=== PATIENT | male | born 1985 | race Caucasian/White ===

== ENCOUNTER 2018-06-14 23:09 | Emergency (ER) | payer MEDICAID ==
[~2018-06-14] VITALS: Ht 170.2 cm; Wt 78.3 kg
[2018-06-14 23:31] VITALS: Ht 170.2 cm; Wt 78.3 kg
[2018-06-15] MEDS ORDERED: LIDOCAINE 1% (MDV) 20 ML INJ SC ONE (00:30)
[2018-06-15] MEDS ORDERED: IBUP-1542 PO (01:12)
[2018-06-15 01:24] VITALS: BP 109/64; PULSE 64; RESP 18
--- NOTE | 2018-06-15 01:56 | ERD ---
ER Documentation Chief Complaint Chief Complaint abscess to left ear lobe HPI 32-year-old male complaining of abscess to the left earlobe times 1 week. Patient states that the area is getting bigger and more painful every day. He had a similar abscess to his right earlobe about 1 year ago. He had a drain at that time. Patient states that the pain radiates into his right ear and right jaw. Denies fever or chills. Denies decreased hearing. Denies ear drainage. Denies pain when chewing food. ROS All systems reviewed and are negative except as per history of present illness. Medications Home Meds Active Scripts Ibuprofen* (Motrin*) 600 Mg Tab, 600 MG PO Q6H PRN for PAIN AND OR ELEVATED TEMP, #30 TAB Prov:FRANKIE ADAMSON SCHOOL CLERK 06/15/18 Allergies Allergies: Coded Allergies: No Known Drug Allergy (Verified Allergy, Unknown, 06/14/18) PMhx/Soc Medical and Surgical Hx: pt denies Medical Hx, pt denies Surgical Hx Hx Alcohol Use: No Hx Substance Use: No Hx Tobacco Use: No Smoking Status: Never smoker Physical Exam Vitals Vital Signs Date Temp Pulse Resp B/P (MAP) Pulse Ox O2 O2 Flow FiO2 Time Delivery Rate 06/15/18 97.8 64 18 109/64 99 Room Air 01:24 (79) 06/14/18 97.6 100 18 123/71 96 23:31 (88) Physical Exam General: Well-developed, well-nourished, conscious and coherent, in no distress Skin: Warm and dry without rash, good texture and turgor Head: Normocephalic without evidence of trauma Ears: Canals are patent. Tympanic membranes are clear. Left earlobe was swollen and fluctuant. Chest: Normal AP diameter. Good expansion without retractions. Nontender. Lungs are clear to auscultate bilaterally with good tidal volume Heart: Regular rate and rhythm. No murmur, rub, or gallops heard Extremities: Full range of motion. Good strength bilaterally. No erythema, ecchymosis, or edema. Peripheral pulses are intact. Sensation intact Neuro: Alert and oriented 4, GCS 15. Results 24 hrs Current Medications Medications Dose Sig/Andrzej Start Time Status Last (Trade) Ordered Route PRN Stop Time Admin Dose Reason Admin Lidocaine 5 ml ONCE ONCE 06/15/18 DC (Xylocaine SC 00:30 06/15/18 1% (Mdv) 20 00:31 ml) Procedures/MDM Procedure note: Incision and Drainage Verbal consent obtained for incision and drainage of patient's abscess. The area was prepped with Betadine. Lidocaine 1% was infiltrated for local anesthesia. After appropriate anesthesia, incision was made using #11 blade. Small amount of purulent discharge and Estefani was drained from the abscess. Manual compression applied. The abscess was probed for loculation. I also remove the sebaceous sac. The wound was then cleaned and dressed. While lying on the gurney for the procedure, patient appeared to had a vasovagal syncope. I was able to arouse him after the procedure, patient had normal vital signs after being aroused. I doubt seizure, stroke, hypoxemia. Patient appears well, stable for discharge and outpatient management. Medical decision making shared with patient and family. Education provided to patient and family. Patient and family expressed understanding of the plan. Medications on discharge: Ibuprofen. Follow-up: Primary care provider or ED in 2 days for recheck. Disclaimer: Inadvertent spelling and grammatical errors are likely due to EHR/dictation software use and do not reflect on the overall quality of patient care. Also, please note that the electronic time recorded on this note does not necessarily reflect the actual time of the patient encounter. Departure Diagnosis: Primary Impression: Sebaceous cyst of ear Condition: Stable Patient Instructions: Sebaceous Cyst, Infected (I And D) Referrals: [facility] YOU HAVE RECEIVED A MEDICAL SCREENING EXAM AND THE RESULTS INDICATE THAT YOU DO NOT HAVE A CONDITION THAT REQUIRES URGENT TREATMENT IN THE EMERGENCY DEPARTMENT. FURTHER EVALUATION AND TREATMENT OF YOUR CONDITION CAN WAIT UNTIL YOU ARE SEEN IN YOUR DOCTORS OFFICE WITHIN THE NEXT 1-2 DAYS. IT IS YOUR RESPONSIBILITY TO MAKE AN APPOINTMENT FOR FOLOW-UP CARE. IF YOU HAVE A PRIMARY DOCTOR --you should call your primary doctor and schedule an appointment IF YOU DO NOT HAVE A PRIMARY DOCTOR YOU CAN CALL OUR PHYSICIAN REFERRAL HOTLINE AT IF YOU CAN NOT AFFORD TO SEE A PHYSICIAN YOU CAN CHOSE FROM THE FOLLOWING [facility] [address] [facility] [address] [facility]. [facility] [address]. [facility] [address] [facility]. [facility] [address] [facility] [address]. [facility] [address] Additional Instructions: Return to this facility in 2 DAYS for a follow-up exam.Return sooner if your condition worsens. FRANKIE ADAMSON. NANCY Jun 15, 2018 01:56
== END 2018-06-15 01:42 | disposition home or self-care (01) ==
LOC: E/R 23:09 → FTE 06-15 01:42
DX: L72.3 Sebaceous cyst (principal); R40.2412 Glasgow coma scale score 13-15, at arrival to emergency department
CPT/HCPCS: 69000; Z7502; Z7610

== ENCOUNTER 2018-09-27 22:37 | Observation (INO) | payer SELFPAY ==
[~2018-09-27] VITALS: Ht 170.2 cm; Wt 74.4 kg
[~2018-09-27 22:37] MED LIST: IBUP-1542 PO
[2018-09-27 22:46] VITALS: Ht 170.2 cm; Wt 74.4 kg
[2018-09-27] MEDS ORDERED: SOD CHLORIDE 0.9% 1,000 ML IV ONE (23:30)
[2018-09-28] MEDS ORDERED: ACETAMINOPHEN 325 MG TAB PO ONE (03:30)
--- NOTE | 2018-09-28 04:30 | ERD ---
ER Documentation Chief Complaint Chief Complaint dizzy, numb toes, shivers, sweating x1mo. amb w steady gait. HPI 33-year-old male comes in because it chest pain dizziness and diaphoresis for 1 month. Denies nausea or vomiting. He says it got worse today. History of pericarditis. Feels different than his previous episodes of pericarditis. Denies any other current issues. ROS All systems reviewed and are negative except as per history of present illness. Medications Home Meds Active Scripts Ibuprofen* (Motrin*) 600 Mg Tab, 600 MG PO Q6H PRN for PAIN AND OR ELEVATED TE MP, #30 TAB Prov:FRANKIE ADAMSON. COMMODITIES REQUIREMENTS ANALYST 06/15/18 Allergies Allergies: Coded Allergies: No Known Drug Allergy (Verified Allergy, Unknown, 06/14/18) PMhx/Soc History of Surgery: Yes (TONSILECTOMY ) Hx Cardiac Disorders: Yes (PERICARDITIS ) Hx Alcohol Use: No Hx Substance Use: No Hx Tobacco Use: No Smoking Status: Never smoker Physical Exam Vitals Vital Signs Date Temp Pulse Resp B/P (MAP) Pulse Ox O2 O2 Flow FiO2 Time Delivery Rate 09/28/18 76 16 107/66 97 Room Air 03:08 (80) 09/28/18 97.6 80 16 129/94 100 Room Air 00:57 (106) 09/27/18 97.6 83 18 145/83 96 22:46 (103) Physical Exam Const: No acute distress Head: Atraumatic Eyes: Normal Conjunctiva ENT: Normal External Ears, Nose and Mouth. Neck: Full range of motion. No meningismus. Resp: Clear to auscultation bilaterally Cardio: Regular rate and rhythm, no murmurs Abd: Soft, non tender, non distended. Normal bowel sounds Skin: No petechiae or rashes Back: No midline or flank tenderness Ext: No cyanosis, or edema Neur: Awake and alert Psych: Normal Mood and Affect Result Diagram: 09/27/18232909/27/182329 Results 24 hrs Laboratory Tests Test 09/27/18 23:30 White Blood Count 10.7 10^3/ul Red Blood Count 5.94 10^6/ul Hemoglobin 16.1 g/dl Hematocrit 47.8 % Mean Corpuscular Volume 80.5 fl Mean Corpuscular Hemoglobin 27.1 pg Mean Corpuscular Hemoglobin Concent 33.7 g/dl Red Cell Distribution Width 11.9 % Platelet Count 320 10^3/UL Mean Platelet Volume 9.6 fl Immature Granulocytes % 0.500 % Neutrophils % 62.9 % Lymphocytes % 28.0 % Monocytes % 6.9 % Eosinophils % 1.0 % Basophils % 0.7 % Nucleated Red Blood Cells % 0.0 /100WBC Immature Granulocytes # 0.050 10^3/ul Neutrophils # 6.8 10^3/ul Lymphocytes # 3.0 10^3/ul Monocytes # 0.7 10^3/ul Eosinophils # 0.1 10^3/ul Basophils # 0.1 10^3/ul Nucleated Red Blood Cells # 0.0 10^3/ul Sodium Level 144 mmol/L Potassium Level 4.2 mmol/L Chloride Level 102 mmol/L Carbon Dioxide Level 30 mmol/L Anion Gap 12 Blood Urea Nitrogen 17 mg/dl Creatinine 0.88 mg/dl Est Glomerular Filtrat Rate mL/min > 60 mL/min Glucose Level 84 mg/dl Calcium Level 9.9 mg/dl Total Bilirubin 0.7 mg/dl Direct Bilirubin 0.00 mg/dl Indirect Bilirubin 0.7 mg/dl Aspartate Amino Transf (AST/SGOT) 32 IU/L Alanine Aminotransferase (ALT/SGPT) 52 IU/L Alkaline Phosphatase 104 IU/L Troponin I < 0.012 ng/ml B-Type Natriuretic Peptide 20 PG/ML Total Protein 8.6 g/dl Albumin 5.1 g/dl Globulin 3.50 g/dl Albumin/Globulin Ratio 1.45 Thyroid Stimulating Hormone (TSH) 3.790 MIU/L Free Thyroxine Index 3.14 ug/ml Thyroxine (T4) 9.6 ug/dl Triiodothyronine (T3) Uptake 32.7 % Current Medications Medications Dose Sig/Andrzej Start Time Status Last (Trade) Ordered Route PRN Stop Time Admin Dose Reason Admin Sodium 1,000 ml @ Q1H ONCE 09/27/18 DC 09/27/18 Chloride 1,000 mls/hr IV 23:30 23:37 09/28/18 00:29 650 mg ONCE ONCE 09/28/18 DC 09/28/18 Acetaminophen PO 03:30 03:19 (Tylenol 09/28/18 03:31 Tab) Procedures/MDM EKG: Rate/Rhythm: [Normal Sinus Rhythm] QRS, ST, T-waves: [No changes consistent w/ acute ischemia] Impression: [No evidence of ischemia or arrhythmia] Chest X-ray 1V Interpreted by me: Soft Tissue: No acute abnormalities Bones: No acute abnormalities Mediastinum/Cardiac Silhouette/Lungs: [No acute abnormalities] Patient's symptoms are concerning for cardiac cause will require inpatient workup and continuous monitoring. Further w/u for ischemia, arrhythmia, PE or dissection will be deferred to the inpatient team. Accepting Care Team: Current data and ongoing care discussed. Time: 1 AM Primary Provider: Hospitalist Consulting: Deferred to inpatient team Outstanding Data: none Departure Diagnosis: Primary Impression: Chest pain Chest pain type: unspecified Qualified Codes: R07.9 - Chest pain, unspecified Condition: Serious SANTOS DEL RIO Sep 28, 2018 04:30
[2018-09-28] MEDS ORDERED: ONDANSETRON 4 MG INJ IV PRN (05:30)
[2018-09-28] MEDS ORDERED: NITROGLYCERIN (SL) 0.4 MG TAB SL PRN (05:30)
[2018-09-28] MEDS ORDERED: NACL 0.9% 3 ML SYG IV SCH (05:30)
[2018-09-28] MEDS ORDERED: ACETAMINOPHEN 325 MG TAB PO PRN (05:30)
--- NOTE | 2018-09-28 08:09 | HP ---
Date/Time of Note Date/Time of Note DATE: 09/28/18 TIME: 08:05 Assessment/Plan VTE Prophylaxis Pharmacological prophylaxis: heparin Lines/Catheters IV Catheter Type (from Nrs): Saline Lock Assessment/Plan Assessment/Plan 33-year-old male with a history of pericarditis diagnosed at the age of 19 here with facial numbness, bilateral lower extremity numbness as well as left upper extremity weakness. PLAN -Patient reported that he had a stroke work-up including MRI of the brain at [facility] a month ago onset of his symptoms. He stated work-up was negative. -Here head CT is negative for acute findings -Plan is to obtain records from [facility] and obtain a Neurology consult. We will however order a 2D echo since he said he did have one at [place] Result Diagram: 09/28/18 0538 09/28/18 0538 Results 24hrs Laboratory Tests Test 09/27/18 23:30 09/28/18 05:38 White Blood Count 10.7 8.2 # Red Blood Count 5.94 5.33 Hemoglobin 16.1 14.4 Hematocrit 47.8 43.0 Mean Corpuscular Volume 80.5 L 80.7 L Mean Corpuscular Hemoglobin 27.1 L 27.0 L Mean Corpuscular Hemoglobin Concent 33.7 33.5 Red Cell Distribution Width 11.9 12.3 Platelet Count 320 273 Mean Platelet Volume 9.6 9.5 Immature Granulocytes % 0.500 H 0.200 Neutrophils % 62.9 49.5 Lymphocytes % 28.0 36.9 Monocytes % 6.9 10.4 Eosinophils % 1.0 2.0 Basophils % 0.7 1.0 Nucleated Red Blood Cells % 0.0 0.0 Immature Granulocytes # 0.050 H 0.020 Neutrophils # 6.8 4.1 Lymphocytes # 3.0 H 3.0 H Monocytes # 0.7 0.9 Eosinophils # 0.1 0.2 Basophils # 0.1 0.1 Nucleated Red Blood Cells # 0.0 0.0 Sodium Level 144 144 Potassium Level 4.2 3.9 Chloride Level 102 104 Carbon Dioxide Level 30 33 H Anion Gap 12 7 Blood Urea Nitrogen 17 13 Creatinine 0.88 0.82 Est Glomerular Filtrat Rate mL/min > 60 > 60 Glucose Level 84 81 Calcium Level 9.9 9.2 Total Bilirubin 0.7 0.9 Direct Bilirubin 0.00 0.00 Indirect Bilirubin 0.7 0.9 Aspartate Amino Transf (AST/SGOT) 32 21 Alanine Aminotransferase (ALT/SGPT) 52 40 Alkaline Phosphatase 104 74 Troponin I < 0.012 < 0.012 B-Type Natriuretic Peptide 20 Total Protein 8.6 H 6.7 # Albumin 5.1 H 4.1 # Globulin 3.50 H 2.60 Albumin/Globulin Ratio 1.45 1.57 Thyroid Stimulating Hormone (TSH) 3.790 2.730 Free Thyroxine Index 3.14 Thyroxine (T4) 9.6 Triiodothyronine (T3) Uptake 32.7 Hemoglobin A1c 5.0 Magnesium Level 2.2 Creatine Kinase 63 Creatine Kinase Index 0.5 Creatinine Kinase MB (Mass) 0.32 Triglycerides Level 146 Cholesterol Level 165 LDL Cholesterol, Calculated 96 HDL Cholesterol 40 Cholesterol/HDL Ratio 4.1 Vitamin B12 Level 382 Folate 6.2 HPI/ROS Admit Date/Time Admit Date/Time Hx of Present Illness This is a 33-year-old male with a history of pericarditis diagnosed at the age of 19 presents to the ER complaining of facial numbness as well as bilateral lower extremity numbness. On further questioning he also reported left upper extremity weakness. He said symptoms started a month ago. At that time, he went to [facility] where he said he had a stroke work-up. He was told MRI of the brain was normal. His symptoms continued and as such he came here for evaluation. He also reported that he has been feeling cold and hot. Denied slurred speech, facial droop, seizure-like activity, visual disturbance, headache, chest pain or shortness of breath. When he presented to ER, vitals were stable. CT of the head without acute findings. PMH/Family/Social Past Medical History Medical History: other (See HPI) Medications Current Medications IV Flush (NS 3 ml) 3 ml PER PROTOCOL IV ; Start 09/28/18 at 05:30 Ondansetron HCl (Zofran Inj) 4 mg Q6H PRN IV NAUSEA/VOMITING; Start 09/28/18 at 05:30 Aspirin (Aspirin) 81 mg DAILY PO ; Start 09/28/18 at 09:00 Nitroglycerin (Nitroglycerin (Sl Tab) 0.4 Mg) 1 tab Q5M PRN SL .CHEST PAIN; Start 09/28/18 at 05:30 Acetaminophen (Tylenol Tab) 650 mg Q6H PRN PO .PAIN 1-3 OR TEMP; Start 09/28/18 at 05:30 Enoxaparin Sodium (Lovenox) 40 mg DAILY SC ; Start 09/28/18 at 09:00 Coded Allergies: No Known Drug Allergy (Verified Allergy, Unknown, 09/28/18) Past Surgical History Past Surgical Hx: other (See HPI) Family History Significant Family History: no pertinent family hx Social History Alcohol Use: other Smoking Status: Never smoker Drug Use: none Exam/Review of Systems Vital Signs Vitals Vital Signs Date Temp Pulse Resp B/P (MAP) Pulse Ox O2 O2 Flow FiO2 Time Delivery Rate 09/28/18 59 16 109/79 100 Room Air 07:30 (89) 09/28/18 97.6 00:57 Exam Constitutional: alert, oriented, well developed Head: normocephalic, atraumatic Eyes: EOMI, PERRL Respiratory: clear to auscultation, normal air movement Cardiovascular: regular rate and rhythm, nl pulses Gastrointestinal: soft, non-tender Extremities: normal pulses Neurological: nl mental status, nl speech, other (Slightly decreased handgrip of the left hand.) SANTOS CARMONA MD Sep 28, 2018 08:09
[2018-09-28] MEDS: ENOXAPARIN 40 MG/0.4 ML SYG SC SCH ×2 (09:00→10:06)
[2018-09-28] MEDS: ASPIRIN 81 MG TAB PO SCH (10:06)
--- NOTE | 2018-09-28 14:17 | QN ---
Documentation Comment 33-year-old male with a history of pericarditis at age 19, migraine headaches, admitted with bilateral facial/upper and lower extremity numbnessx 1 month duration. Apparently, patient had comprehensive neurological work-up at outside hospital which was nondiagnostic. Patient continued to have a headache and he believes his symptoms are also related to his migraine headaches and anxiety. At this time, we recommend giving him 1 dose of Imitrex, obtain a carotid ultrasound, brain MRI and official neurology evaluation. We will also obtain a TTE.. We will also order a vitamin D level to a.m. labs. Discussed with YULI Pickens NP Sep 28, 2018 14:17
[2018-09-28] MEDS ORDERED: SUMATRIPTAN 6 MG/0.5 ML INJ SC ONE (14:30)
--- NOTE | 2018-09-28 15:13 | CONS ---
Assessment/Plan Assessment/Plan Hospital Course 33 yo M with distant hx of pericarditis who presents for evaluation of episodic face and BL leg numbness x 1 month... for which neurology is consulted. The clinical picture, as presented, is nonphysiologic. Somatization is a diagnosis of exclusion. A focal [employer]CHO[employer] MUSIC TEACHER process is unlikely. MRI brain is unrevealing. Neuroimaging from [facility] (MRI brain, CT/CTA H/N) was unremarkable. P: Defer further neurologic workup for now Cont other medical management per primary PT/OT/ST as necessary Will follow Consultation Date/Type/Reason Admit Date/Time Type of Consult Neurology Reason for Consultation face/arm/BL E numbness Requesting Provider: YULI TORRES NP Date/Time of Note DATE: 09/28/18 TIME: 15:13 Hx of Present Illness 33 yo M with hx of pericarditis who presented to the ED for evaluation of face and BLE numbness x 1 month. The pt states that ~ 1 month ago, he woke up in the middle of the night with L arm/shoulder numbness. He stated that he tried to drink water and then started shaking, like it was a seizure, which is what ultimately brought him to [facility]'s ED. He stated that the workup from [facility] was reportedly negative but his sx still persisted. He states that following the ED visit, he started developing whole face and BL feet numbness that occurred around the same time every night, came on gradually and then went away on its own. He stated that because his sx persisted, he brought himself again to the ED. He currently endorses headache and BL feet numbness. Denies all other focal sx currently. He denies alcohol or illicit drug use. He endorses stress in his life but did not discuss it further. It is additionally elsewhere noted: Hx of Present Illness This is a 33-year-old male with a history of pericarditis diagnosed at the age of 19 presents to the ER complaining of facial numbness as well as bilateral lower extremity numbness. On further questioning he also reported left upper extremity weakness. He said symptoms started a month ago. At that time, he went to [facility] where he said he had a stroke work-up. He was told MRI of the brain was normal. His symptoms continued and as such he came here for evaluation. He also reported that he has been feeling cold and hot. Denied slurred speech, facial droop, seizure-like activity, visual disturbance, headache, chest pain or shortness of breath. When he presented to ER, vitals were stable. CT of the head without acute findings. negative unless noted otherwise in HPI Exam/Review of Systems Exam Vitals Vital Signs Date Temp Pulse Resp B/P (MAP) Pulse Ox O2 O2 Flow FiO2 Time Delivery Rate 09/28/18 74 16 123/83 100 Room Air 13:00 (96) 74 09/28/18 97.6 00:57 Exam PE: Gen Appearance: No Apparent Distress HEENT: Normocephalic Cardiovascular: Regular rate Lungs: Clear bilaterally Abdomen: Soft Extremities: Dry NE: The patient was alert and oriented. Language was normal. Fund of knowledge was normal. Pupils were equal and reactive to light. There was no afferent pupillary defect. Visual mccabe were normal. Funduscopic examination was limited. Extra-ocular movements were full. Ptosis was absent. There was no nystagmus. Facial sensation was normal. Face was symmetric with normal strength. Hearing was intact. Palate movements were normal. Neck strength was normal. There was normal tongue bulk and speed of movement. Tone was normal. Muscle bulk was normal. I did not see fasciculations. Arms and legs were strong. Sensation to light touch was diminished in his L foot. Vibration sensation was normal. Temperature and pinprick sensation was normal. Rapid alternating movements were normal. There was no dysmetria. There was no intention tremor. Gait was deferred due to bedrest. Arm and leg reflexes were 2+ and symmetric. Du's sign was absent. Plantar responses were flexor. Results Result Diagram: 09/28/18 0538 09/28/18 0538 Results 24hrs Laboratory Tests Test 09/27/18 23:30 09/28/18 05:33 09/28/18 05:38 09/28/18 10:59 White Blood Count 10.7 8.2 # Red Blood Count 5.94 5.33 Hemoglobin 16.1 14.4 Hematocrit 47.8 43.0 Mean Corpuscular 80.5 L 80.7 L Volume Mean Corpuscular 27.1 L 27.0 L Hemoglobin Mean Corpuscular 33.7 33.5 Hemoglobin Concent Red Cell 11.9 12.3 Distribution Width Platelet Count 320 273 Mean Platelet Volume 9.6 9.5 Immature 0.500 H 0.200 Granulocytes % Neutrophils % 62.9 49.5 Lymphocytes % 28.0 36.9 Monocytes % 6.9 10.4 Eosinophils % 1.0 2.0 Basophils % 0.7 1.0 Nucleated Red Blood 0.0 0.0 Cells % Immature 0.050 H 0.020 Granulocytes # Neutrophils # 6.8 4.1 Lymphocytes # 3.0 H 3.0 H Monocytes # 0.7 0.9 Eosinophils # 0.1 0.2 Basophils # 0.1 0.1 Nucleated Red Blood 0.0 0.0 Cells # Sodium Level 144 144 Potassium Level 4.2 3.9 Chloride Level 102 104 Carbon Dioxide Level 30 33 H Anion Gap 12 7 Blood Urea Nitrogen 17 13 Creatinine 0.88 0.82 Est Glomerular > 60 > 60 Filtrat Rate mL/min Glucose Level 84 81 Calcium Level 9.9 9.2 Total Bilirubin 0.7 0.9 Direct Bilirubin 0.00 0.00 Indirect Bilirubin 0.7 0.9 Aspartate Amino 32 21 Transf (AST/SGOT) Alanine 52 40 Aminotransferase (AL T/SGPT) Alkaline Phosphatase 104 74 Troponin I < 0.012 < 0.012 < 0.012 B-Type Natriuretic 20 Peptide Total Protein 8.6 H 6.7 # Albumin 5.1 H 4.1 # Globulin 3.50 H 2.60 Albumin/Globulin 1.45 1.57 Ratio Thyroid Stimulating 3.790 2.730 Hormone (TSH) Free Thyroxine Index 3.14 Thyroxine (T4) 9.6 Triiodothyronine 32.7 (T3) Uptake Vitamin D 34.7 1,25-Dihydroxy Hemoglobin A1c 5.0 Magnesium Level 2.2 Creatine Kinase 63 68 Creatine Kinase 0.5 0.3 Index Creatinine Kinase MB 0.32 0.23 (Mass) Triglycerides Level 146 Cholesterol Level 165 LDL Cholesterol, 96 Calculated HDL Cholesterol 40 Cholesterol/HDL 4.1 Ratio Vitamin B12 Level 382 Folate 6.2 Medications Medication Current Medications IV Flush (NS 3 ml) 3 ml PER PROTOCOL IV ; Start 09/28/18 at 05:30 Ondansetron HCl (Zofran Inj) 4 mg Q6H PRN IV NAUSEA/VOMITING; Start 09/28/18 at 05:30 Aspirin (Aspirin) 81 mg DAILY PO Last administered on 09/28/18at 10:06; Admin Dose 81 MG; Start 09/28/18 at 09:00 Nitroglycerin (Nitroglycerin (Sl Tab) 0.4 Mg) 1 tab Q5M PRN SL .CHEST PAIN; Start 09/28/18 at 05:30 Acetaminophen (Tylenol Tab) 650 mg Q6H PRN PO .PAIN 1-3 OR TEMP; Start 09/28/18 at 05:30 Enoxaparin Sodium (Lovenox) 40 mg DAILY SC ; Start 09/28/18 at 09:00 Atorvastatin Calcium (Lipitor) 20 mg QHS PO ; Start 09/28/18 at 21:00 Past Medical History reviewed Medical History: other (See HPI) Home Meds Discontinued Scripts Ibuprofen* (Motrin*) 600 Mg Tab, 600 MG PO Q6H PRN for PAIN AND OR ELEVATED TEMP, #30 TAB Prov:FRANKIE ADAMSON SAFETY DEPOSIT BOXES CUSTODIAN 06/15/18 Medications Current Medications IV Flush (NS 3 ml) 3 ml PER PROTOCOL IV ; Start 09/28/18 at 05:30 Ondansetron HCl (Zofran Inj) 4 mg Q6H PRN IV NAUSEA/VOMITING; Start 09/28/18 at 05:30 Aspirin (Aspirin) 81 mg DAILY PO Last administered on 09/28/18at 10:06; Admin Dose 81 MG; Start 09/28/18 at 09:00 Nitroglycerin (Nitroglycerin (Sl Tab) 0.4 Mg) 1 tab Q5M PRN SL .CHEST PAIN; Start 09/28/18 at 05:30 Acetaminophen (Tylenol Tab) 650 mg Q6H PRN PO .PAIN 1-3 OR TEMP; Start 09/28/18 at 05:30 Enoxaparin Sodium (Lovenox) 40 mg DAILY SC ; Start 09/28/18 at 09:00 Atorvastatin Calcium (Lipitor) 20 mg QHS PO ; Start 09/28/18 at 21:00 Allergies: Coded Allergies: No Known Drug Allergy (Verified Allergy, Unknown, 09/28/18) Past Surgical History reviewed Past Surgical Hx: other (See HPI) Social History reviewed Alcohol Use: other Smoking Status: Never smoker Drug Use: none KARIS MI NP Sep 28, 2018 15:13
[2018-09-28 19:44] VITALS: BP 138/91; PULSE 95; RESP 18
[2018-09-28 20:00] VITALS: PULSE 88
[2018-09-28] MEDS ORDERED: ATORVASTATIN 20 MG TAB PO SCH (21:00)
[2018-09-28] MEDS ORDERED: LORAZEPAM 1 MG TAB PO ONE (23:00)
[2018-09-28] MEDS ORDERED: KETOROLAC 30 MG INJ IV ONE (23:40)
[2018-09-28 23:56] VITALS: BP 128/84; PULSE 81; RESP 18
[2018-09-29] VITALS (7 sets, daily range): BP systolic 110–117; BP diastolic 66–69; PULSE 58–92; RESP 18
[2018-09-29] MEDS ORDERED: KETOROLAC 30 MG INJ IV PRN (06:00)
[2018-09-29] MEDS: ASPIRIN 81 MG TAB PO SCH (08:20)
[2018-09-29] MEDS: ENOXAPARIN 40 MG/0.4 ML SYG SC SCH (08:33)
--- NOTE | 2018-09-29 09:28 | RADRPT ---
Echocardiogram Report Patient Name: Vignesh BWOMAN ID: [id number] : 1985 (33y 1m)Study Date: 09/29/2018 7:23:56 AM Gender: MAccession #: [id number] Tech: Bea Victoria SUNNY Location: 609 Ref.Physician: YULI TORRES Height(Cm): BSA: Weight(Kg): Quality: AdequateAccount #: Procedures: Echocardiographic Report: Transthoracic echocardiogram with complete 2D, M-Mode, and doppler examination. Indications: Evaluate Left Ventricular function. Measurements: 2D/M Mode Doppler Measurement Value Normal Range Measurement Value Normal Range LVIDd 2D 4.3 [ 4.2 - 5.8 ] cm AV Peak Ganga 1.0 [ 100.0 - 170.0 ] cm/sec LVIDs 2D 2.9 [ 2.5 - 4.0 ] cm AV Peak PG 4.0 [ 2.0 - 9.0 ] mmHg LVPWd 2D 1.0 [ 0.6 - 1.0 ] cm LVOT Peak Ganga 0.9 [ 70.0 - 110.0 ] cm/sec IVSd 2D 1.0 [ 0.6 - 1.0 ] cm LVOT Peak PG 3.0 [ 2.0 - 6.0 ] mmHg AoR Diam 2D 2.2 [ 2.6 - 3.4 ] cm MV E Peak Ganga 0.7 [ 60.0 - 130.0 ] cm/sec EDV 2D 85.4 [ 62.0 - 150.0 ] ml MV A Peak Ganga 0.4 [ 100.0 - 120.0 ] cm/sec ESV 2D 31.7 [ 21.0 - 61.0 ] ml MV E/A 1.6 [ 0.8 - 1.5 ] ratio EF 2D 62.9 [ 52.0 - 72.0 ] percent MV Decel Time 176 [ 104 - 258 ] msec LA Dimen 2D 2.9 [ 3.0 - 4.0 ] cm Lat E` Ganga 0.1 [ 10.0 - 15.0 ] cm/sec Lateral E/E` 5.2 [ 1.0 - 2.0 ] ratio MV E/A 1.6 [ 0.8 - 1.5 ] ratio Findings: Left Ventricle: Normal left ventricular systolic function. Normal left ventricular cavity size. Normal left ventricular wall thickness. Ejection fraction is visually estimated at 60 %. Tissue Doppler/Mitral Doppler indices are within normal limits. Right Ventricle: Normal right ventricular size. Normal right ventricular systolic function. Left Atrium: The left atrium is normal in size. Right Atrium: The right atrium is normal in size. Mitral Valve: Normal appearance and function of the mitral valve with trace physiologic regurgitation. Aortic Valve: Normal appearance of the aortic valve. No significant aortic stenosis or insufficiency. Tricuspid Valve: Normal appearance and function of the tricuspid valve with trace physiologic regurgitation. Normal right ventricular systolic pressure. Pulmonic Valve: Pulmonic valve not well visualized. Pericardium: Normal pericardium with no significant pericardial effusion. Aorta: Normal aortic root. IVC: Normal size and normal respiratory collapse consistent with normal right atrial pressure. Conclusions: Normal left ventricular systolic function. Normal left ventricular cavity size. Normal left ventricular wall thickness. Ejection fraction is visually estimated at 60 %. Tissue Doppler/Mitral Doppler indices are within normal limits. Normal appearance of the aortic valve. No significant aortic stenosis or insufficiency. Normal appearance and function of the mitral valve with trace physiologic regurgitation. Normal appearance and function of the tricuspid valve with trace physiologic regurgitation. Normal right ventricular systolic pressure. Electronically Signed By: Andres Kent 2018-09-29 09:27:56 PDT
[2018-09-29] MEDS ORDERED: ALPR0.25 PO (10:02)
--- NOTE | 2018-09-29 10:02 | PDOCDIS ---
Discharge Instructions CONDITION [id number] Patient Condition: [id number] Stable HOME CARE INSTRUCTIONS: [id number] Diet Instructions: [id number] Regular FOLLOW UP/APPOINTMENTS Follow-up Plan Follow-up with primary care physician in 1 week YULI TORRES NP Sep 29, 2018 10:02
--- NOTE | 2018-09-29 10:12 | DS ---
Date/Time of Note Date/Time of Note DATE: 09/29/18 TIME: 10:06 Discharge Summary Admission/Discharge Info Admit Date/Time Sep 28, 2018 at 02:27 Discharge Date/Time Discharge Diagnosis Numbness of unclear etiology. Patient Condition: Stable Consults ,neuro Procedures 09/28/2018 brain MRI brain without contrast IMPRESSION: 1. No acute intracranial hemorrhage, infarction or mass. 2. Partially empty sella turcica. 09/28/2018 and ultrasound carotids. IMPRESSION: No evidence for hemodynamically significant stenosis in the bilateral internal carotid arteries - validated velocity measurements with angiographic measurements, velocity criteria are extrapolated from diameter data as defined by the Society of Radiologists in Ultrasound Consensus Conference Radiology 2003; 229;340-346. This study does indirectly reference the measurement of the distal ICA diameter as the denominator for stenosis measurement. Normal antegrade flow in the vertebral arteries bilaterally. 09/28-minute 2D echocardiogram. Conclusions: Normal left ventricular systolic function. Normal left ventricular cavity size. Normal left ventricular wall thickness. Ejection fraction is visually estimated at 60 %. Tissue Doppler/Mitral Doppler indices are within normal limits. Normal appearance of the aortic valve. No significant aortic stenosis or insufficiency. Normal appearance and function of the mitral valve with trace physiologic regurgitation. Normal appearance and function of the tricuspid valve with trace physiologic regurgitation. Normal right ventricular systolic pressure. Electronically Signed By: Andres Kent 2018-09-29 09:27:56 PDT Hospital Course 33-year-old male with a history of pericarditis at age 19, headaches, admitted with bilateral facial/upper and lower extremity numbness 1 month duration... Patient symptoms for not related to headaches, activities, or others. Patient had extensive neurological work-up at outside hospital a week ago, and was unremarkable. Patient had neurology follow-up again here at [facility]. MRI, carotid ultrasound unrevealing. There was no evidence of demyelinating lesions or areas of infarcts. Extensive neuroimaging from [facility] also was unremarkable. At this time, a focal INVENTORY ADMINISTRATOR process is very un likely and clinical picture is nonphysiologic according to neurology evaluation. Migraine related numbness cannot be excluded although patient did not respond to analgesics/Imitrex trials.... Patient did respond to anxiolytic. At this time, he is safe for outpatient follow-up. Patient with no numbness today. Approximately 60 m spent on coordinating the discharge on this patient. Patient was seen in collaboration with Dr. Rojas. Home Meds Discontinued Scripts Ibuprofen* (Motrin*) 600 Mg Tab, 600 MG PO Q6H PRN for PAIN AND OR ELEVATED TEMP, #30 TAB Prov:FRANKIE ADAMSON NP 06/15/18 Follow-up Plan Follow-up with primary care physician in 1 week Primary Care Provider Care Physician No Primary Pending Labs Laboratory Tests Test 09/28/18 10:59 09/29/18 05:43 Creatine Kinase 68 IU/L (23-200) Creatine Kinase Index 0.3 Creatinine Kinase MB 0.23 ng/ml (0.0-2.4) (Mass) Troponin I < 0.012 ng/ml (0.000-0.120) White Blood Count 7.8 10^3/ul (4.8-10.8) Red Blood Count 5.61 10^6/ul (4.70-6.10) Hemoglobin 15.2 g/dl (14.0-18.0) Hematocrit 45.7 % (42.0-52.0) Mean Corpuscular Volume 81.5 fl (82.0-101.0) Mean Corpuscular 27.1 pg (29.0-33.0) Hemoglobin Mean Corpuscular 33.3 g/dl (32.0-37.0) Hemoglobin Concent Red Cell Distribution 12.1 % (11.5-14.5) Width Platelet Count 291 10^3/UL (140-415) Mean Platelet Volume 9.8 fl (7.4-10.4) Immature Granulocytes % 0.400 % (0.001-0.429) Neutrophils % 54.5 % (39.0-77.0) Lymphocytes % 32.9 % (15.0-51.0) Monocytes % 8.6 % (0.0-11.0) Eosinophils % 2.7 % (0.0-7.0) Basophils % 0.9 % (0.0-2.0) Nucleated Red Blood Cells 0.0 /100WBC (0.0-0.0) % Immature Granulocytes # 0.030 10^3/ul (0.0-0.031) Neutrophils # 4.2 10^3/ul (1.6-7.5) Lymphocytes # 2.6 10^3/ul (0.8-2.9) Monocytes # 0.7 10^3/ul (0.3-0.9) Eosinophils # 0.2 10^3/ul (0.0-0.5) Basophils # 0.1 10^3/ul (0.0-0.1) Nucleated Red Blood Cells 0.0 10^3/ul (0.0-0.0) # Sodium Level 142 mmol/L (135-144) Potassium Level 4.3 mmol/L (3.5-5.1) Chloride Level 106 mmol/L (97-110) Carbon Dioxide Level 25 mmol/L (21-31) Anion Gap 11 (5-13) Blood Urea Nitrogen 17 mg/dl (7-20) Creatinine 0.81 mg/dl (0.61-1.24) Est Glomerular Filtrat > 60 mL/min (>60) Rate mL/min Glucose Level 90 mg/dl (70-220) Calcium Level 9.8 mg/dl (8.4-10.2) Phosphorus Level 5.7 mg/dl (2.5-4.9) Magnesium Level 2.0 mg/dl (1.7-2.5) YULI TORRES V. [employer] Sep 29, 2018 10:12
--- NOTE | 2018-09-29 13:59 | CONS ---
Assessment/Plan Assessment/Plan Hospital Course 33 yo M with distant hx of pericarditis who presents for evaluation of episodic face and BL leg numbness x 1 month... for which neurology is consulted. The clinical picture, as presented, is nonphysiologic. Somatization is a diagnosis of exclusion. A focal COAL TRAMMER process is unlikely. MRI brain is unrevealing. Neuroimaging from [facility] (MRI brain, CT/CTA H/N) was unremarkable. P: Defer further neurologic workup for now Cont other medical management per primary PT/OT/ST as necessary Will follow Consultation Date/Type/Reason Admit Date/Time Sep 28, 2018 at 02:27 Type of Consult Neurology Reason for Consultation face/arm/BL E numbness Requesting Provider: YULI TORRES NP Date/Time of Note DATE: 09/29/18 TIME: 13:58 24 HR Interval Summary Free Text/Dictation Continues acute care. Endorses occasional dizziness today. Exam Vital Signs Vitals Vital Signs Date Temp Pulse Resp B/P (MAP) Pulse Ox O2 O2 Flow FiO2 Time Delivery Rate 09/29/18 74 12:19 09/29/18 97.4 18 117/66 98 Room Air 11:11 (83) Exam PE: Gen Appearance: No Apparent Distress HEENT: Normocephalic Cardiovascular: Regular rate Lungs: Clear bilaterally Abdomen: Soft Extremities: Dry NE: The patient was alert and oriented. Language was normal. Fund of knowledge was normal. Pupils were equal and reactive to light. There was no afferent pupillary defect. Visual mccabe were normal. Funduscopic examination was limited. Extra-ocular movements were full. Ptosis was absent. There was no nystagmus. Facial sensation was normal. Face was symmetric with normal strength. Hearing was intact. Palate movements were normal. Neck strength was normal. There was normal tongue bulk and speed of movement. Tone was normal. Muscle bulk was normal. I did not see fasciculations. Arms and legs were strong. Vibration sensation was normal. Temperature and pinprick sensation was normal. Rapid alternating movements were normal. There was no dysmetria. There was no intention tremor. Gait was deferred due to bedrest. Arm and leg reflexes were 2+ and symmetric. Du's sign was absent. Plantar responses were flexor. KARIS MI NP Sep 29, 2018 13:59
== END 2018-09-29 14:10 | disposition home or self-care (01) ==
LOC: E/R 22:37 → 6WM 09-28 02:27
PROVIDERS: ADMIT Internal Medicine; ATTEND Internal Medicine
DX: R20.0 Anesthesia of skin (principal)
CPT/HCPCS: 36415; 70450; 70551; 71045; 80048; 80053; 80061; 82550; 82553; 82607; 82652; 82746; 83036; 83735; 83880; 84100; 84436; 84443; 84479; 84484; 85025; 93005; 93306; 93880; 97161; 99285; G0378; J1650; J3030; J7030